=== PATIENT | male | born 1935 | race Caucasian/White ===

== ENCOUNTER 2016-12-20 19:35 | Emergency (ER) | payer MEDICARE, OTHER ==
[~2016-12-20] VITALS: Ht 188 cm; Wt 86.2 kg
[2016-12-20] MEDS ORDERED: IV NORMAL SALINE 1,000ML 1,000 ML IV ONE (22:20)
--- NOTE | 2016-12-20 22:36 | RAD ---
CT head without intravenous contrast History: Dizziness. Comparison: None. Technique: Axial images are obtained of the head from the skull base through the vertex without IV contrast. Exposure: One or more of the following individualized dose reduction techniques were utilized for this examination: 1. Automated exposure control 2. Adjustment of the mA and/or kV according to patient size 3. Use of iterative reconstruction technique Findings: The ventricles are appropriate in size, shape, and location for the patient's age. No obvious intracranial mass, mass-effect, midline shift, hemorrhage or obvious acute infarction is identified. Basilar cisterns are patent. Patchy, nonspecific white matter low-attenuation is seen, probably from chronic microvascular ischemic disease. Bone windows demonstrate no acute calvarial abnormality. The visualized paranasal sinuses appear clear. Impression: 1. No acute intracranial process. Please note that CT can be relatively insensitive to acute ischemic infarction for up to 24 hours after symptom onset. 2. Nonspecific white matter changes, probably from chronic microvascular ischemic disease. Electronically signed by: J Luis Limon MD (12/20/2016 10:33 PM)
[2016-12-20 23:10] LABS: BACTERIA,URINE 0 /HPF (0-FEW); BILIRUBIN,URINE NEG (NEG); CLARITY,URINE CLEAR; COLOR,URINE YELLOW; GLUCOSE,URINE NEG (NEG); NITRITE,URINE NEG (NEG); RBC,URINE 0 /HPF (0-2); SQUAMOUS EPITHELIAL CELL,UR OCC /LPF; UROBILINOGEN,URINE 0.2 mg/dL (0.2 mg/dL); WBC,URINE RARE /HPF (0-4)
[2016-12-20 23:34] LABS: BASO # 0.1 x10^3/uL (0.0-0.2); BASO % 1 % (0-3); EOS # 0.1 x10^3/uL (0.0-0.7); EOS % 1 % (0-3); HEMATOCRIT 38.2 % (39.0-53.0); HEMOGLOBIN 12.9 g/dL (13.0-17.5); LYMPH # 2.4 x10^3/uL (1.0-4.8); LYMPH % 24 % (24-48); MEAN CORPUSCULAR HEMOGLOBIN 32 pg (25-35); MEAN CORPUSCULAR HGB CONC 34 g/dL (31-37); MEAN CORPUSCULAR VOLUME 95 fL (79-100); MONO # 0.4 x10^3/uL (0.0-1.1); MONO % 4 % (0-9); NEUT # 7.2 x10^3uL (1.8-7.7); NEUT % 71 % (31-73); PLATELET COUNT 227 x10^3/uL (140-400); RED CELL DISTRIBUTION WIDTH 13.5 % (11.5-14.5); WHITE BLOOD COUNT 10.2 x10^3/uL (4.0-11.0)
[2016-12-20 23:39] LABS: CALCIUM 9.2 mg/dL (8.5-10.1); CREATININE 1.2 mg/dL (0.7-1.3); GFR 58.1; POTASSIUM 4.4 mmol/L (3.5-5.1)
[2016-12-21 00:10] VITALS: BP 164/90
[2016-12-21] MEDS ORDERED: MECL25TA3 PO (00:17)
--- NOTE | 2016-12-21 00:18 | PHYS DOC ---
Past History Past Medical History: Other Past Surgical History: Appendectomy Alcohol Use: None Drug Use: None Adult General Chief Complaint Chief Complaint: DIZZY/LIGHT HEADED HPI HPI 81-year-old male with a past medical history of vertigo now presents the emergency department complaining of dizziness with room spinning. Patient has previously been worked up for vertigo and had a prior negative CAT scan. He woke this morning with room spinning which was worse with movement. His symptoms are associated with nausea as well. He has no headache or stiff neck. No numbness weakness difficulty with speech or coordination. No other complaints no chest pain or shortness of breath Review of Systems Review of Systems Constitutional: Denies fever or chills [] Eyes: Denies change in visual acuity, redness, or eye pain [] HENT: Denies nasal congestion or sore throat [] Respiratory: Denies cough or shortness of breath [] Cardiovascular: No additional information not addressed in HPI [] GI: Denies abdominal pain, nausea, vomiting, bloody stools or diarrhea [] : Denies dysuria or hematuria [] Musculoskeletal: Denies back pain or joint pain [] Integument: Denies rash or skin lesions [] Neurologic: Denies headache, focal weakness or sensory changes [] Endocrine: Denies polyuria or polydipsia [] Current Medications Current Medications Current Medications Medications (Trade) Dose Ordered Sig/Adonis Start Time Stop Time Status Last Admin Dose Admin Sodium Chloride 1,000 ml @ 1,000 mls/hr 1X ONCE 12/20/16 22:20 12/20/16 23:19 DC 12/20/16 22:20 1,000 MLS/HR Allergies Allergies Allergies Coded Allergies Type Severity Reaction Last Updated Verified No Known Drug Allergies 12/20/16 No Physical Exam Physical Exam Well-appearing elderly male no acute distress. Dizziness is reproducible with head movement. He has normal TMs bilateral supple neck. Nonfocal neurologic exam Constitutional: Well developed, well nourished, no acute distress, non-toxic appearance. [] HENT: Normocephalic, atraumatic, bilateral external ears normal, oropharynx moist, no oral exudates, nose normal. [] Eyes: PERRLA, EOMI, conjunctiva normal, no discharge. [] Neck: Normal range of motion, no tenderness, supple, no stridor. [] Cardiovascular:Heart rate regular rhythm, no murmur [] Lungs & Thorax: Bilateral breath sounds clear to auscultation [] Abdomen: Bowel sounds normal, soft, no tenderness, no masses, no pulsatile masses. [] Skin: Warm, dry, no erythema, no rash. [] Back: No tenderness, no CVA tenderness. [] Extremities: No tenderness, no cyanosis, no clubbing, ROM intact, no edema. [] Neurologic: Alert and oriented X 3, normal motor function, normal sensory function, no focal deficits noted. [] Psychologic: Affect normal, judgement normal, mood normal. [] Current Patient Data Vital Signs Vital Signs Date Time Temp Pulse Resp B/P (MAP) Pulse Ox O2 Delivery O2 Flow Rate FiO2 12/20/16 19:45 98.1 87 18 99 Room Air Lab Results Laboratory Tests Test 12/20/16 22:20 12/20/16 23:00 Urine Collection Type Void Urine Color Yellow Urine Clarity Clear Urine pH 7.0 Urine Specific [place] 1.010 Urine Protein Neg (NEG-TRACE) Urine Glucose (UA) Neg mg/dL (NEG) Urine Ketones (Stick) Neg mg/dL (NEG) Urine Blood Neg (NEG) Urine Nitrite Neg (NEG) Urine Bilirubin Neg (NEG) Urine Urobilinogen Dipstick 0.2 mg/dL (0.2 mg/dL) Urine Leukocyte Esterase Neg (NEG) Urine RBC 0 /HPF (0-2) Urine WBC Rare /HPF (0-4) Urine Squamous Epithelial Cells Occ /LPF Urine Bacteria 0 /HPF (0-FEW) White Blood Count 10.2 x10^3/uL (4.0-11.0) Red Blood Count 4.00 x10^6/uL (4.30-5.70) L Hemoglobin 12.9 g/dL (13.0-17.5) L Hematocrit 38.2 % (39.0-53.0) L Mean Corpuscular Volume 95 fL (79-100) Mean Corpuscular Hemoglobin 32 pg (25-35) Mean Corpuscular Hemoglobin Concent 34 g/dL (31-37) Red Cell Distribution Width 13.5 % (11.5-14.5) Platelet Count 227 x10^3/uL (140-400) Neutrophils (%) (Auto) 71 % (31-73) Lymphocytes (%) (Auto) 24 % (24-48) Monocytes (%) (Auto) 4 % (0-9) Eosinophils (%) (Auto) 1 % (0-3) Basophils (%) (Auto) 1 % (0-3) Neutrophils # (Auto) 7.2 x10^3uL (1.8-7.7) Lymphocytes # (Auto) 2.4 x10^3/uL (1.0-4.8) Monocytes # (Auto) 0.4 x10^3/uL (0.0-1.1) Eosinophils # (Auto) 0.1 x10^3/uL (0.0-0.7) Basophils # (Auto) 0.1 x10^3/uL (0.0-0.2) Sodium Level 138 mmol/L (136-145) Potassium Level 4.4 mmol/L (3.5-5.1) Chloride Level 102 mmol/L (98-107) Carbon Dioxide Level 29 mmol/L (21-32) Anion Gap 7 (6-14) Blood Urea Nitrogen 17 mg/dL (8-26) Creatinine 1.2 mg/dL (0.7-1.3) Estimated GFR (Cockcroft-Gault) 58.1 Glucose Level 123 mg/dL (70-99) H Calcium Level 9.2 mg/dL (8.5-10.1) EKG EKG [] Radiology/Procedures Radiology/Procedures [] Course & Med Decision Making Course & Med Decision Making Pertinent Labs and Imaging studies reviewed. (See chart for details) Signs and symptoms consistent with peripheral vertigo a known diagnosis for this patient now with an exacerbation which is unremarkable. CT of the head and full workup unremarkable as well no further workup or treatment indicated. Patient feels improved after treatment. He and his His family agree with outpatient follow-up and strict return precautions given [] Dragon Disclaimer Dragon Disclaimer This chart was dictated in whole or in part using Voice Recognition software in a busy, high-work load, and often noisy Emergency Department environment. It may contain unintended and wholly unrecognized errors or omissions. Departure Departure: Impression: Primary Impression: Vertigo Disposition: 01 HOME, SELF-CARE Condition: IMPROVED Referrals: CONSTANTINO GALICIA MD (PCP) Patient Instructions: Vertigo Additional Instructions: That you have been having an attack of vertigo again today. Your workup has showed nothing else which might be contributing to her dizziness including a negative CT of the head, unremarkable EKG, and normal labs. Take meclizine 25 mg every 6 hours as needed for dizziness, and follow up with your doctor in 1-2 days for reevaluation. Return to the emergency department immediately for any severe or worsening symptoms Scripts Meclizine Hcl (MECLIZINE HCL) 25 Mg Tablet 25 MG PO Q6HRS Y for dizziness, #20 TAB Prov: AIMEE ALLEN MD 12/21/16 AIMEE ALLEN MD Dec 21, 2016 00:18
--- NOTE | 2016-12-21 06:36 | EKG ---
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
--- NOTE | 2016-12-21 08:54 | RAD ---
Portable chest, 12/20/2016: History: Dizziness, vertigo The heart size is normal. There is calcific plaquing of the aorta. There is attenuation of the pulmonary vessels in the upper lobes suggesting emphysema. No acute infiltrate is seen. There is no evidence of pleural fluid. IMPRESSION: No acute cardiopulmonary abnormality is detected.
== END 2016-12-21 00:29 | disposition home or self-care (01) ==
LOC: ER 19:35
DX: R42 Dizziness and giddiness (principal); R11.0 Nausea
CPT/HCPCS: 36415; 70450; 71010; 80048; 81001; 85027; 93005; 96360; 96361; 99285-25; J7030

== ENCOUNTER 2020-01-01 20:50 | Emergency (ER) | payer MEDICARE, OTHER ==
[~2020-01-01] VITALS: Ht 185.4 cm; Wt 92.7 kg
[~2020-01-01 20:50] MED LIST: MECL-75 PO
--- NOTE | 2020-01-01 21:00 | PHYS DOC ---
Past History Past Medical History: Anxiety, Arthritis, Depression, Hypertension, Other Past Medical History Hx. of recurrent Vertigo Past Surgical History: Appendectomy Alcohol Use: None Drug Use: None General Adult HPI: HPI: "I was just sitting at home.. watch a movie.. it was over at 6...but I notice I got dizzy,... when I stood up...or moved my head quickly...it is like when I get episodes of vertigo... " Patient is a 84 year old male who presents with onset of acute onset dizzyness . Pt. states when he tilts his head back or moves his head side to side or stands up abruptly feels like he is getting dizzy. Pt. states it like his previous episodes of Vertigo. Pt. did have lateral nystagmus with turning his head from side to side. Consisted of 3 beats 4 beats. It was equal on both sides. Patient does have a past significant history of prior work-ups for his episodic vertigo. 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 Patient did have a recent work-up at [facility] in which he received a CT which showed no acute pathology. Patient only follows with Dr. Zaragoza and Dr. Dumont . Patient denies any recent travel. Patient denies history of ill contacts. Patient denies any changes in his baseline meds. Patient did take 2 aspirins at time of the onset of dizziness. Review of Systems: Review of Systems: Constitutional: Denies fever or chills Eyes: Denies change in visual acuity HENT: Denies nasal congestion or sore throat Respiratory: Denies cough or shortness of breath Cardiovascular: Denies chest pain or edema GI: Denies abdominal pain, nausea, vomiting, bloody stools or diarrhea : Denies dysuria Musculoskeletal: Chronic low back pain or joint pain Integument: Denies rash Neurologic: Denies headache, focal weakness or sensory changes. Complains of dizziness which he relates is a. presentation of his vertigo episodes Endocrine: Denies polyuria or polydipsia Lymphatic: Denies swollen glands Psychiatric: Denies depression or anxiety Heart Score: HEART Score for Chest Pain: HEART Score for Chest Pain Response (Comments) Value History Slighlty/Non-Suspicious 0 ECG Nonspecific Repolarizatio 1 Age > 65 2 Risk Factors 1 or 2 Risk Factors 1 Troponin < Normal Limit 0 Total 4 Risk Factors: Risk Factors: DM, Current or recent (<one month) smoker, HTN, HLP, family history of CAD, obesity. Risk Scores: Score 0 - 3: 2.5% MACE over next 6 weeks - Discharge Home Score 4 - 6: 20.3% MACE over next 6 weeks - Admit for Clinical Observation Score 7 - 10: 72.7% MACE over next 6 weeks - Early Invasive Strategies Family History: Family History: Non-contributory to presentation Current Medications: Current Meds: See nursing for home meds Allergies: Allergies: Allergies Coded Allergies Type Severity Reaction Last Updated Verified No Known Drug Allergies 12/20/16 No Physical Exam: PE: Constitutional: , no acute distress, non-toxic appearance. [] HENT: Normocephalic, atraumatic, bilateral external ears normal, oropharynx moist, no oral exudates, nose normal. [] Eyes: PERRLA, EOMI, conjunctiva normal, no discharge. [] Neck: Normal range of motion, no tenderness, supple, no stridor. [] No carotid bruits appreciated. Cardiovascular:Heart rate regular rhythm, no murmur [] PMI to the left Lungs & Thorax: Bilateral breath sounds equal at apexes on auscultation [] Abdomen: Bowel sounds normal, soft, no tenderness, no masses, no pulsatile masses. Old surgery scars Skin: Warm, dry, no erythema, no rash. Poor turgor Back: No tenderness, no CVA tenderness. [] Extremities: No tenderness, no cyanosis, no clubbing, ROM intact, no edema. [] Arthritic changes. Neurologic: Alert and oriented X 3, normal motor function, normal sensory function, no focal deficits noted. [] DTRs +2. Patella and brachial. Inspector Tester Sorter equal. Patient is a ambulatory. Does have 3 beat nystagmus when he rapidly turns his head on both sides. This also induces his symptoms of dizziness. Psychologic: Affect anxious, judgement normal, mood normal. [] EKG: EKG: My interpretation EKG shows a sinus rhythm at 76 bpm. There is slightly prolonged MO interval at 246 ms. No findings of acute STEMI with contralateral changes [] Radiology/Procedures: Radiology/Procedures: [address] [address] IMAGING REPORT Signed PATIENT: GERRI MACKENZIE: [id number] : 1935 LOCATION: ER AGE: 84 SEX: M EXAM STATUS: PRE ER ORD. PHYSICIAN: NANDA STOCKTON MD REASON: CODE STROKE PROCEDURE: CT CODE STROKE HEAD WO EXAM: CT Head without IV contrast INDICATION: Reason: CODE STROKE / Spl. Instructions: / History: TECHNIQUE: Multi-detector row CT images were obtained of the head without the use of IV contrast. All CT scans performed at this facility utilize dose optimization techniques as appropriate to the exam, including the following: Automated exposure control and adjustment of the mA and/or KV according to patient size (this includes techniques or standardized protocols for targeted exams where dose is indication/reason for exam). COMPARISON: None FINDINGS: BRAIN PARENCHYMA: No evidence of acute intraparenchymal hemorrhage or infarct. Mild generalized parenchymal volume loss and white matter low density compatible chronic ischemic microvascular change. VENTRICLES & EXTRA-AXIAL SPACES: Ventricles are within normal limits. Basilar cisterns are patent. No pathologic extra-axial fluid collection or mass. ORBITS: Orbital contents are unremarkable. SINUSES: Visualized paranasal sinuses and mastoid air cells are clear. OSSEOUS & SOFT TISSUES: Calvarium and skull base are intact. IMPRESSION: No acute intracranial process. FOR INTERNAL CODING PURPOSES Critical result: Findings discussed with NANDA STOCKTON at 01/01/2020 9:13 PM. RESULT CODE: (C) Electronically signed by: Benigno Martinez MD (01/01/2020 9:21 PM) [facility] [place] DICTATED AND SIGNED BY: BENIGNO MARTINEZ MD DATE: 01/01/202120 CC: NANDA STOCKTON MD; CONSTANTINO GALICIA MD ~ [address] [address] IMAGING REPORT Signed PATIENT: GERRI MACKENZIE: [id number] : 1935 LOCATION: ER AGE: 84 SEX: M EXAM STATUS: PRE ER ORD. PHYSICIAN: NANDA STOCKTON MD REASON: stroke protocol, DIZZY PROCEDURE: CT CERVICAL SPINE WO CONTRAST EXAM: CT Cervical Spine without IV contrast INDICATION: Reason: stroke protocol, DIZZY / Spl. Instructions: / History: TECHNIQUE: Multi-detector row CT images were obtained through the cervical spine without the use of IV contrast. Post-processing sagittal and coronal reconstructed images were obtained for interpretation. All CT scans performed at this facility utilize dose optimization techniques as appropriate to the exam, including the following: Automated exposure control and adjustment of the mA and/or KV according to patient size (this includes techniques or standardized protocols for targeted exams where dose is indication/reason for exam). COMPARISON: Noncontrast head CT same date FINDINGS: CRANIOCERVICAL JUNCTION: Unremarkable. ALIGNMENT: There is mild straightening of the cervical spine. No listhesis OSSEOUS: No evidence of fracture or bone destruction. DISC SPACES: Degenerative changes in multiple of the cervical spine are present, most conspicuous at C3-C4 through C6-C7 FACET JOINTS: Unremarkable. SPINAL CANAL: Unremarkable. NEUROFORAMINA: Varying degrees of foraminal narrowing due to disc degenerative change SOFT TISSUES: Bilateral carotid calcifications. IMPRESSION: CT C-spine showing degenerative changes but no fracture or malalignment. No aggressive osseous lesions. Incidental carotid calcifications are present.. Electronically signed by: Benigno Martinez MD (01/01/2020 9:29 PM) [facility] [place] DICTATED AND SIGNED BY: BENIGNO MARTINEZ MD DATE: 01/01/202128 CC: NANDA STOCKTON MD; CONSTANTINO GALICIA MD ~ [][place] [address] IMAGING REPORT Signed PATIENT: GERRI MACKENZIE: [id number] : 1935 LOCATION: ER AGE: 84 SEX: M EXAM STATUS: PRE ER ORD. PHYSICIAN: NANDA STOCKTON MD REASON: DIZZY PROCEDURE: CHEST AP ONLY EXAM: CT Cervical Spine without IV contrast INDICATION: Reason: stroke protocol, DIZZY / Spl. Instructions: / History: TECHNIQUE: Multi-detector row CT images were obtained through the cervical spine without the use of IV contrast. Post-processing sagittal and coronal reconstructed images were obtained for interpretation. All CT scans performed at this facility utilize dose optimization techniques as appropriate to the exam, including the following: Automated exposure control and adjustment of the mA and/or KV according to patient size (this includes techniques or standardized protocols for targeted exams where dose is indication/reason for exam). COMPARISON: Noncontrast head CT same date FINDINGS: CRANIOCERVICAL JUNCTION: Unremarkable. ALIGNMENT: There is mild straightening of the cervical spine. No listhesis OSSEOUS: No evidence of fracture or bone destruction. DISC SPACES: Degenerative changes in multiple of the cervical spine are present, most conspicuous at C3-C4 through C6-C7 FACET JOINTS: Unremarkable. SPINAL CANAL: Unremarkable. NEUROFORAMINA: Varying degrees of foraminal narrowing due to disc degenerative change SOFT TISSUES: Bilateral carotid calcifications. IMPRESSION: CT C-spine showing degenerative changes but no fracture or malalignment. No aggressive osseous lesions. Incidental carotid calcifications are present.. Electronically signed by: Benigno Martinez MD (01/01/2020 9:29 PM) [facility] [place] DICTATED AND SIGNED BY: BENIGNO MARTINEZ MD DATE: 01/01/202128 CC: NANDA STOCKTON MD; CONSTANTINO GALICIA MD ~ Course & Med Decision Making: Course & Med Decision Making Pertinent Labs and Imaging studies reviewed. (See chart for details) Pt. 0030 hrs. advised he wished discharge home. Exhibits [facility] capacity. To take meds as directed. Return if elect admit with neruology consult and further work up. Patient take Benadryl 25 mg with 4 times a day for his symptoms since this worked previously for his vertigo. Return if any concerns. Pt. declines admit and neurology consult. No current symptoms. Request discharge home. Patient to follow-up with primary care. Review the ED work- up. Discussed treatment plan for further episodes of vertigo with his primary care and consider neurology follow-up. 1.Dizzy 2. Vertigo 3. Accelerated hypertension tension. Resolved by time of discharge 4. Anemia hemoglobin 12.3 5. Elevated creatinine 1.5 6. D-dimer 0.85 [] Dragon Disclaimer: Dragon Disclaimer: This electronic medical record was generated, in whole or in part, using a voice recognition dictation system. Departure Departure: Disposition: HOME/RESIDENCE PRIOR TO ADM Condition: STABLE Referrals: CONSTANTINO GALICIA MD (PCP) Justification of Admission: Justification of Admission: Justification of Admission Dx: N/A Hypertension: [place] Worsening of Sym Dragon Disclaimer This chart was dictated in whole or in part using Voice Recognition software in a busy, high-work load, and often noisy Emergency Department environment. It may contain unintended and wholly unrecognized errors or omissions. Dragon Disclaimer This chart was dictated in whole or in part using Voice Recognition software in a busy, high-work load, and often noisy Emergency Department environment. It may contain unintended and wholly unrecognized errors or omissions. Dragon Disclaimer This chart was dictated in whole or in part using Voice Recognition software in a busy, high-work load, and often noisy Emergency Department environment. It may contain unintended and wholly unrecognized errors or omissions. NANDA STOCKTON MD Jan 01, 2020 21:00
--- NOTE | 2020-01-01 21:24 | RAD ---
EXAM: CT Head without IV contrast INDICATION: Reason: CODE STROKE / Spl. Instructions: / History: TECHNIQUE: Multi-detector row CT images were obtained of the head without the use of IV contrast. All CT scans performed at this facility utilize dose optimization techniques as appropriate to the exam, including the following: Automated exposure control and adjustment of the mA and/or KV according to patient size (this includes techniques or standardized protocols for targeted exams where dose is indication/reason for exam). COMPARISON: None FINDINGS: BRAIN PARENCHYMA: No evidence of acute intraparenchymal hemorrhage or infarct. Mild generalized parenchymal volume loss and white matter low density compatible chronic ischemic microvascular change. VENTRICLES & EXTRA-AXIAL SPACES: Ventricles are within normal limits. Basilar cisterns are patent. No pathologic extra-axial fluid collection or mass. ORBITS: Orbital contents are unremarkable. SINUSES: Visualized paranasal sinuses and mastoid air cells are clear. OSSEOUS & SOFT TISSUES: Calvarium and skull base are intact. IMPRESSION: No acute intracranial process. FOR INTERNAL CODING PURPOSES Critical result: Findings discussed with NANDA STOCKTON at 01/01/2020 9:13 PM. RESULT CODE: (C) Electronically signed by: Adri Martinez MD (01/01/2020 9:21 PM) [facility] [place]
--- NOTE | 2020-01-01 21:32 | RAD ---
EXAM: CT Cervical Spine without IV contrast INDICATION: Reason: stroke protocol, DIZZY / Spl. Instructions: / History: TECHNIQUE: Multi-detector row CT images were obtained through the cervical spine without the use of IV contrast. Post-processing sagittal and coronal reconstructed images were obtained for interpretation. All CT scans performed at this facility utilize dose optimization techniques as appropriate to the exam, including the following: Automated exposure control and adjustment of the mA and/or KV according to patient size (this includes techniques or standardized protocols for targeted exams where dose is indication/reason for exam). COMPARISON: Noncontrast head CT same date FINDINGS: CRANIOCERVICAL JUNCTION: Unremarkable. ALIGNMENT: There is mild straightening of the cervical spine. No listhesis OSSEOUS: No evidence of fracture or bone destruction. DISC SPACES: Degenerative changes in multiple of the cervical spine are present, most conspicuous at C3-C4 through C6-C7 FACET JOINTS: Unremarkable. SPINAL CANAL: Unremarkable. NEUROFORAMINA: Varying degrees of foraminal narrowing due to disc degenerative change SOFT TISSUES: Bilateral carotid calcifications. IMPRESSION: CT C-spine showing degenerative changes but no fracture or malalignment. No aggressive osseous lesions. Incidental carotid calcifications are present.. Electronically signed by: Adri Martinez MD (01/01/2020 9:29 PM) [facility] [place]
[2020-01-01] MEDS ORDERED: IV RINGERS SOLUTION,LACTATED 1,000 ML IV SCH (21:42)
[2020-01-01] MEDS ORDERED: ONDANSETRON PF 4 MG/2 ML VIAL. IVP ONE (21:45)
[2020-01-01 21:58] LABS: BASO # 0.1 x10^3/uL (0.0-0.2); BASO % 1 % (0-3); EOS # 0.4 x10^3/uL (0.0-0.7); EOS % 5 % (0-3); HEMATOCRIT 35.8 % (39.0-53.0); HEMOGLOBIN 12.3 g/dL (13.0-17.5); LYMPH % 35 % (24-48); MEAN CORPUSCULAR HEMOGLOBIN 34 pg (25-35); MEAN CORPUSCULAR HGB CONC 34 g/dL (31-37); MEAN CORPUSCULAR VOLUME 99 fL (79-100); MONO # 0.9 x10^3/uL (0.0-1.1); MONO % 10 % (0-9); NEUT # 4.3 x10^3uL (1.8-7.7); NEUT % 49 % (31-73); PLATELET COUNT 249 x10^3/uL (140-400); RED BLOOD COUNT 3.64 x10^6/uL (4.30-5.70); RED CELL DISTRIBUTION WIDTH 13.6 % (11.5-14.5); WHITE BLOOD COUNT 8.8 x10^3/uL (4.0-11.0)
[2020-01-01 22:04] LABS: CALCIUM 8.8 mg/dL (8.5-10.1); CREATININE 1.5 mg/dL (0.7-1.3); GFR 44.6; POTASSIUM 4.3 mmol/L (3.5-5.1)
[2020-01-01 22:17] LABS: ALBUMIN 3.6 g/dL (3.4-5.0); DIRECT BILIRUBIN 0.1 mg/dL (0.0-0.2); MAGNESIUM 2.1 mg/dL (1.8-2.4); TOTAL BILIRUBIN 0.2 mg/dL (0.2-1.0); TOTAL PROTEIN 7.2 g/dL (6.4-8.2)
--- NOTE | 2020-01-01 23:46 | EKG ---
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
[2020-01-01 23:47] LABS: BARBITURATES NEG (NEG); BENZODIAZEPINES NEG (NEG); BILIRUBIN,URINE NEG (NEG); CANNABINOIDS NEG (NEG); CLARITY,URINE CLEAR; COCAINE NEG (NEG); COLOR,URINE STRAW; GLUCOSE,URINE NEG (NEG); METHADONE NEG (NEG); OPIATES NEG (NEG); PHENCYCLIDINE NEG (NEG); UROBILINOGEN,URINE 0.2 mg/dL (0.2 mg/dL)
[2020-01-01 23:48] LABS: AMORPHOUS SEDIMENT,UR PRESENT /HPF; BACTERIA,URINE FEW /HPF (0-FEW); NITRITE,URINE NEG (NEG); RBC,URINE 0 /HPF (0-2); SQUAMOUS EPITHELIAL CELL,UR OCC /LPF; WBC,URINE 0 /HPF (0-4)
[2020-01-01 23:52] LABS: AMPHETAMINE/METHAMPHETAMINE NEG (NEG)
[2020-01-02] MEDS ORDERED: diphenhydrAMINE HCL 25 MG CAPSULE PO ONE ×2 (00:04)
== END 2020-01-02 00:15 | disposition home or self-care (01) ==
LOC: ER 20:50
DX: R42 Dizziness and giddiness (principal); I10 Essential (primary) hypertension; D64.9 Anemia, unspecified; R79.1 Abnormal coagulation profile; R94.4 Abnormal results of kidney function studies; F41.9 Anxiety disorder, unspecified; M19.90 Unspecified osteoarthritis, unspecified site
CPT/HCPCS: 36415; 70450; 71045; 72125; 80048; 80076; 80307; 81001; 82550; 83690; 83735; 83880; 84443; 84484; 85025; 85379; 85610; 85730; 93005; 96361; 96374; 99285; J2405; J7120; Q0163; 99284-25

== ENCOUNTER 2020-10-16 18:04 | Emergency (ER) | payer MEDICARE ==
[~2020-10-16] VITALS: Ht 185.4 cm; Wt 91.7 kg
[2020-10-16] MEDS ORDERED: ORPH-16 PO (19:22)
--- NOTE | 2020-10-16 19:22 | PHYS DOC ---
Past History Past Medical History: Hypertension, Other Additional Past Medical Histor: SPINAL STENOSIS Past Surgical History: Appendectomy Alcohol Use: None Drug Use: None General Adult EDM: Chief Complaint: LOWER EXT PAIN HPI: HPI: Patient is a [age] year old [sex] who presents with [] Review of Systems: Review of Systems: Constitutional: Denies fever or chills Eyes: Denies change in visual acuity HENT: Denies nasal congestion or sore throat Respiratory: Denies cough or shortness of breath Cardiovascular: Denies chest pain or edema GI: Denies abdominal pain, nausea, vomiting, bloody stools or diarrhea : Denies dysuria Musculoskeletal: Denies back pain or joint pain Integument: Denies rash Neurologic: Denies headache, focal weakness or sensory changes Endocrine: Denies polyuria or polydipsia Lymphatic: Denies swollen glands Psychiatric: Denies depression or anxiety Allergies: Allergies: Allergies Coded Allergies Type Severity Reaction Last Updated Verified acetaminophen Adverse Reaction Intermediate Nausea and Vomiting 01/01/20 Yes hydrocodone Adverse Reaction Intermediate Nausea and Vomiting 01/01/20 Yes oxycodone Adverse Reaction Intermediate 01/01/20 Yes Physical Exam: PE: Constitutional: Well developed, well nourished, no acute distress, non-toxic appearance. [] HENT: Normocephalic, atraumatic, bilateral external ears normal, oropharynx moist, no oral exudates, nose normal. [] Eyes: PERRLA, EOMI, conjunctiva normal, no discharge. [] Neck: Normal range of motion, no tenderness, supple, no stridor. [] Cardiovascular:Heart rate regular rhythm, no murmur [] Lungs & Thorax: Bilateral breath sounds clear to auscultation [] Abdomen: Bowel sounds normal, soft, no tenderness, no masses, no pulsatile masses. [] Skin: Warm, dry, no erythema, no rash. [] Back: No tenderness, no CVA tenderness. [] Extremities: No tenderness, no cyanosis, no clubbing, ROM intact, no edema. [] Neurologic: Alert and oriented X 3, normal motor function, normal sensory function, no focal deficits noted. [] Psychologic: Affect normal, judgement normal, mood normal. [] Current Patient Data: Vital Signs: Vital Signs Date Time Temp Pulse Resp B/P (MAP) Pulse Ox O2 Delivery O2 Flow Rate FiO2 10/16/20 18:19 97.2 94 18 144/78 (100) 97 Room Air EKG: EKG: [] Radiology/Procedures: Radiology/Procedures: [] Heart Score: Risk Factors: Risk Factors: DM, Current or recent (<one month) smoker, HTN, HLP, family history of CAD, obesity. Risk Scores: Score 0 - 3: 2.5% MACE over next 6 weeks - Discharge Home Score 4 - 6: 20.3% MACE over next 6 weeks - Admit for Clinical Observation Score 7 - 10: 72.7% MACE over next 6 weeks - Early Invasive Strategies Course & Med Decision Making: Course & Med Decision Making Pertinent Labs and Imaging studies reviewed. (See chart for details) [] Dragon Disclaimer: Dragon Disclaimer: This electronic medical record was generated, in whole or in part, using a voice recognition dictation system. Departure Departure: Impression: Primary Impression: Muscle strain, lower leg Qualified Codes: S86.912A - Strain of unspecified muscle(s) and tendon(s) at lower leg level, left leg, initial encounter Disposition: HOME / SELF CARE / HOMELESS Condition: STABLE Referrals: DAKOTA NICHOLS (PCP) Patient Instructions: Muscle Strain, [id number] Additional Instructions: Make sure to increase water intake especially after exerting yourself out in the warm weather. Scripts Orphenadrine Citrate (ORPHENADRINE CITRATE) 100 Mg Tablet.er 1 TAB PO BID PRN for MUSCLE PAIN, #14 TAB 0 Refills Prov: AIMEE PÉREZ DO 10/16/20 AIMEE PÉREZ DO Oct 16, 2020 19:22
[2020-10-16 19:45] VITALS: BP 125/51
== END 2020-10-16 19:45 | disposition home or self-care (01) ==
LOC: ER 18:04
DX: S86.912A Strain of unspecified muscle(s) and tendon(s) at lower leg level, left leg, initial encounter (principal); I10 Essential (primary) hypertension; Z88.5 Allergy status to narcotic agent; Z88.6 Allergy status to analgesic agent; X58.XXXA Exposure to other specified factors, initial encounter; Y93.89 Activity, other specified; Y92.89 Other specified places as the place of occurrence of the external cause; Y99.8 Other external cause status
CPT/HCPCS: 99283